=== PATIENT | male | born 1975 | race Caucasian/White ===

== ENCOUNTER 2023-12-22 14:01 | Inpatient (IN) | payer OTHER ==
[2023-12-22] VITALS (12 sets, daily range): BP systolic 92–133; BP diastolic 53–76; PULSE 96–107; TEMP 96.4–98
[~2023-12-22] VITALS: Ht 170.2 cm; Wt 64.5 kg
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
[2023-12-22 14:24] LABS: BASO % 0.1 % (0.0-2.0); EOS % 0.2 % (0.0-4.0); GRAN # 14.1 K/mm3 (1.4-6.5); GRAN % 85.7 % (42.2-75.2); LYMPH # 1.4 K/mm3 (1.2-3.4); LYMPH % 8.6 % (20.0-51.0); MEAN CELL VOLUME 109 fl (80.0-100.0); MEAN CORPUSCULAR HGB CONC 34 g/dl (33.0-37.0); MEAN PLATELET VOLUME 11.5 fl (7.4-10.4); MONO # 0.8 K/mm3 (0.1-0.6); PLATELET COUNT 112 K/mm3 (130-400); RED BLOOD COUNT 1.43 M/mm3 (4.20-5.60); REDCELL DISTRIBUTION WIDTH-CV 17.2 % (11.5-14.5)
[2023-12-22 14:39] LABS: INR 6.4 (0.8-3.0)
[2023-12-22 14:40] LABS: ALBUMIN 1.7 gm/dL (3.5-5.0); BILIRUBIN,TOTAL 6.1 mg/dL (0.2-1.2); CALCIUM 7.8 mg/dL (8.4-10.2); CREATININE, serum 2.34 mg/dL (0.72-1.25); POTASSIUM 3.8 mmol/L (3.5-4.5); TOTAL PROTEIN 7.3 gm/dL (6.2-8.1)
[2023-12-22 14:54] LABS: HEMOGLOBIN 5.3 g/dl (13.5-18.0); MEAN CORPUSCULAR HEMOGLOBIN 37 pg (27-31)
[2023-12-22 14:55] LABS: HEMATOCRIT 15.6 % (42.0-52.0)
[2023-12-22 14:56] LABS: COLLECTION METHOD CLEAN CATCH
[2023-12-22 15:24] LABS: URINE APPEARANCE Cloudy (CLEAR/HAZY); URINE COLOR Amber (YELLOW)
[2023-12-22 15:25] LABS: PH 5.5 (5.0-8.5); URINE BLOOD TRACE-INTACT (NEGATIVE); URINE GLUCOSE Negative (NEGATIVE); URINE KETONE TRACE (NEGATIVE); URINE NITRATE Negative (NEGATIVE); URINE PROTEIN(semi-quant) TRACE (NEGATIVE)
[2023-12-22 15:50] LABS: SQUAMOUS EPITHELIAL 0-2 /hpf (0-10); URINE BACTERIA Many /hpf (NONE SEEN); URINE RBC 0-2 /hpf (0-2)
[2023-12-22] MEDS ORDERED: MULTI VITAMINS1 TAB PO (19:08)
[2023-12-22] MEDS ORDERED: LASIX 20MG TABL20 MG PO (19:08)
[2023-12-22] MEDS ORDERED: ALDACTONE 25MG25 M1 PO (19:09)
--- NOTE | 2023-12-22 19:47 | NUR ---
RECEIVED REPORT VIA PHONE CALL FROM IKE, ED RN AT 1733. PATIENT TRANSFERRED TO ICU ROOM 2 VIA STRETCHER ACCOMPANIED BY ED RN, IKE. PATIENT ARRIVED TO UNIT AT 1800. PATIENT TRANSFERRED INTO ICU BED WITH ASSISTANCE OF 4X NURSES. PATIENT RESPONSIVE TO VERBAL STIMULI BUT UNABLE TO ANSWER QUESTIONS. PATIENT FOLLOWS COMMANDS AFTER ASKED TO DO THE COMMAND SEVERAL TIMES. PATIENT IS LETHARGIC AND FALLS ASLEEP QUICKLY, THEN STARTLES AWAKE TO VERBAL STIMULI. PATIENT HAS BLOOD INFUSING AT 120ML/HR TO RIGHT UPPER ARM IV THAT WAS STARTED IN ER. HEART SOUNDS ARE REGULAR WITH S1 AND S2 NOTED, BUT TACHY IN RATE. LUNG SOUNDS ARE CLEAR BILATERALLY AND DIMINISHED IN THE BASES. PATIENT'S ABDOMEN IS VERY DISTENDED AND FIRM. BOWEL SOUNDS ARE HYPOACTIVE X4. PATIENT HAS A SELF IN PLACE DRAINING STACEY COLORED URINE. PATIENT HAS BRUISING AND SKIN TEARS GENERALIZED ALL OVER HIS BODY. PULSES ARE INTACT BILATERALLY IN UPPER AND LOWER EXTREMITIES. PATIENT'S SKIN COLOR IS JAUNDICED WITH GENERALIZED PETECHIAE ALL OVER BODY. PATIENT'S SISTER, SIMRAN, IS EMERGENCY CONTACT. FAMILY WAS UPDATED ON PATIENT'S CONDITION BY THIS NURSE AND SPOKEN TO BY DR. ZAMBRANO VIA PHONE. QUESTIONS ENCOURAGED AND ANSWERED. PATIENT'S BED IN A LOW POSITION. CALL LIGHT WITHIN REACH
--- NOTE | 2023-12-22 21:20 | NUR ---
PATIENT APPEARS TO BE STABLE AT THIS TIME. NO ACTIVE DISTRESS NOTED. SELF CATHETAR IN PLACE AND DRAINING APPROPRIATELY - STACEY COLORED URINE PRESENT. PATIENT ABLE TO AROUSE TO SPEECH AND FOLLOW SIMPLE COMMANDS FOR SHORT PERIOD OF TIME. UNABLE TO RESPOND TO RN OR ANSWER ORIENTATION QUESTIONS. MANY SKIN TEARS NOTED TO PATIENT'S TRUNK AND EXTREMITIES. ABDOMEN DISTENDED FROM ASCITES. GENERALIZED PETECHIAE NOTED WITH EXTREME DRYNESS AND FLAKY. BLEEDING NOTED FROM MOUTH AND SKIN TEAR/IV SITES. PATIENT REFUSED TO LET ANYONE CLEAN BLOOD FROM MOUTH OR FACE. PATIENT IN OBSERVABLE AREA WITH BED IN LOW POSITION.
[2023-12-23] VITALS (17 sets, daily range): BP systolic 89–150; BP diastolic 45–98; PULSE 94–106; TEMP 96.6–97.7; O2SAT 99–100
[2023-12-23 00:42] LABS: CREATININE, serum 2.16 mg/dL (0.72-1.25); POTASSIUM 3.9 mmol/L (3.5-4.5)
[2023-12-23 03:24] LABS: BASO % 0.1 % (0.0-2.0); EOS % 0.4 % (0.0-4.0); GRAN # 8.7 K/mm3 (1.4-6.5); GRAN % 87.1 % (42.2-75.2); LYMPH # 0.7 K/mm3 (1.2-3.4); LYMPH % 6.9 % (20.0-51.0); MEAN CORPUSCULAR HGB CONC 35 g/dl (33.0-37.0); MEAN PLATELET VOLUME 10.5 fl (7.4-10.4); MONO # 0.5 K/mm3 (0.1-0.6); MONO % 5.1 % (1.7-9.3); RED BLOOD COUNT 2.11 M/mm3 (4.20-5.60); REDCELL DISTRIBUTION WIDTH-CV 17.5 % (11.5-14.5)
[2023-12-23 03:27] LABS: HEMATOCRIT 19.9 % (42.0-52.0); MEAN CELL VOLUME 94 fl (80.0-100.0); MEAN CORPUSCULAR HEMOGLOBIN 33 pg (27-31)
[2023-12-23 03:30] LABS: PLATELET COUNT 47 K/mm3 (130-400)
[2023-12-23 03:33] LABS: INR 5.8 (0.8-3.0)
[2023-12-23 03:38] LABS: ALBUMIN 2.9 gm/dL (3.5-5.0); BILIRUBIN,TOTAL 7.1 mg/dL (0.2-1.2); CREATININE, serum 2.22 mg/dL (0.72-1.25); MAGNESIUM 1.9 mg/dL (1.6-2.6); PHOSPHOROUS 3.5 mg/dL (2.3-4.7); POTASSIUM 3.7 mmol/L (3.5-4.5); TOTAL PROTEIN 6.8 gm/dL (6.2-8.1)
--- NOTE | 2023-12-23 10:02 | NUR ---
dry dip worker was informed by Dr. Hurd that pt will have a palliative consult ordered. MATILDA spoke with sister, Flores [phone] due to patient not being able to answer many questions. She reports patient lives with his parents off and on in [place], but as of late he lived with his parents. She states he does see Dr. Molina and obtains medications from [facility]. She says he can afford his medications, but was worried about other hospital bills. She reports pt is independnet with [employer] and uses no DME. She says there is no DPOA-HC, but her and her Dad, Siddhartha Brown [phone] would make decisions. His mother is Leesa Brown, but she is not very mobile and would not be the sole decision-maker. SW provided from a legal status, RUBIK would be his parents. Flores was agreeable and understood this. She reports she will be on her way here, she is emotional and she reports. Flores began crying and reports, "I am just scared... we had no idea and he didn't tell us how bad it was." SW provided comfort and empathized with her. She reports they would not want him to suffer and reported this twice to MATILDA. MATILDA provided they will have further discussions regarding steps moving forward and goals of care. Flores reports, "He would not want to be in an hospital.." MATILDA provided the ICU Director will discuss and schedule a conversation with them all. Flores verbalized understanding and has no further questions. Palliative Consult pending
--- NOTE | 2023-12-23 10:15 | NUR ---
Patient unable to provide consent for PICC line placement. Called patient's parents (Siddhartha & Leesa) regarding PICC line placement. Explained reason for PICC, risk & benefit. They asked that their daughter, Flores, be called to make the decision. Call made to Flores with explanation of PICC, risk & benefits discussed. Phone consent received.
--- NOTE | 2023-12-23 13:30 | NUR ---
Palliative care meeting at this time. Patient not able to participate related to encephalopathy. Met with patient's father (Siddhartha), sister (Flores) & brother (Giacomo). Patient's mother was not able to attend due to mobility. Explained current prognosis based on provider notes, current treatment & prognosis. Discussed DNR code status related to futility; all agreed that patient would not want or survive resuscitation efforts. Discussed options at this time given prognosis. Discussed comfort care options (hospital, hospice house, fci & home with hospice). Discussed what each option would entail. Flores stated that he would not want to suffer. Family plans to go home to talk with the patient's mother about his prognosis & plan of care.
--- NOTE | 2023-12-23 14:17 | NUR ---
fruit or nut farm worker, SW Student Love, and ICU Director Adri attended a palliative consult with pt's father, Siddhartha, Sister, Flores, and brother, Giacomo. They were informed of the poor prognosis and were advised to discuss goals of care regarding pt moving forward. Flores reports she would not want patient to suffer. The family all asked in depth questions and were answered appropriately. They would not want pt to go to a [facility]. They would like to go home and discuss with mother, Leesa and inform the team of the decision. They informed MATILDA and Director Adri that pt's best friend will be coming in town Thursday, and patient would likely decline by then if he was transitioned to comfort care.
--- NOTE | 2023-12-23 17:55 | NUR ---
Assisted with a bed bath and repositioning. Patient noted to have increased labored respirations with expiratory grunting. Patient has had tachypnea all shift but work of breathing is noted to have increased acutely. VS remain stable at this time. Patient eyes opened with respositioning but does not respond purposefully to staff. Eyes noted to have slow nystagmus with sluggish pupil responses. Hospitalist notified and requested to come to bedside to see patient. Family was also notified and requested to come back to the unit due to likely deterioration in condition in the near future.
[2023-12-23 18:05] LABS: HEMATOCRIT 23.8 % (42.0-52.0); HEMOGLOBIN 8.2 g/dl (13.5-18.0)
--- NOTE | 2023-12-23 18:20 | NUR ---
Family arrived at bedside. Collectively they have come to the conclusion to initiate comfort care. Hospitliast notified and will put in comfort care order set.
--- NOTE | 2023-12-23 22:11 | NUR ---
PATIENT IS SOMNOLENT AND DOES NOT AWAKEN TO STIMULI. GRUNTING AND AIR HUNGER NOTED - PATIENT BEING DOSED APPROPRIATELY. COMFORT CARE ORDERS IN PLACE. PATIENT HAS SLOW NYSTAGMUS WHEN ASSESSING PUPILS. SCLEARL JAUNDICE WELL SIGNIFICANT GENERALIZED JAUNDICE NOTED. PETECHIAE PRESENT TO TRUNK AND EXTREMITIES. DRIED BLOOD IN MOUTH - PATIENT SHAKES HEAD WHEN RN ATTEMPTS TO CLEAN. ABDOMINAL DISTENTION AND ASCITES VISUALISED. PATIENT'S UPPER EXTREMITIES ARE COVERED IN SKIN TEARS WITH DRESSINGS APPLIED TO CONTROL BLEEDING FROM OPEN SORES. SELF CATHETAR DRAINING MINIMAL DRAINAGE. BED IN LOW POSITION AND PATIENT IN OBSERVABLE AREA.
[2023-12-24] VITALS (148 sets, daily range): BP systolic 85; BP diastolic 47; PULSE 84; TEMP 96.6; O2SAT 97–100
--- NOTE | 2023-12-24 10:58 | NUR ---
PATIENT RESTING IN BED. PT IS ON COMFORT CARE ORDERS. SELF AND PICC LINE REMAIN IN PLACE. PATIENT IN DISTRESS.
--- NOTE | 2023-12-24 15:40 | NUR ---
PATIENT CAME FROM ICU. PATIENT IS UNRESPONSIVE, HAS BILATERAL SKIN TEARS AND BRUSING AND MEPLEX DRESSING ON THE SKIN TEARS. PATIENT SKIN IS COOL ON FEET AND HANDS. PATIENT SKIN IS JAUNDICE. PATIENT HAS A SELF INPLACE WITH MINIMAL URINE PER REPORT PATIENT NO LONGER PRODUCING URINE. PATIENT WAS GIVEN PAIN MEDICATION BEFORE COMING UP TO FLOOR. PATIENT FAMILY AT BEDSIDE. FAMILY WASNTS TO BE NOTIFIED OF CHANGES IN PATIENT CONDITION.CONTACT NUMBERS WERE GIVEN TO NIGHT NURSE AND WAS ALSO TOLD OF PATIENT'S FAMILIES WISHES. PATIENT HAS REMAINED UNRESPONSIVE THROUGH THE TIME NURSE WAS IN ROOM.PILLOWS WERE USED TO POSITION PATIENT FOR A MORE COMFORTABLE POSITION.
--- NOTE | 2023-12-24 16:41 | NUR ---
TRANSFERED COMFORT CARE PATIENT TO THE MEDICAL FLOOR. REPORT WAS CALLED AND PHYSICAL HANDOFF WITH RIGO SEGURA. PT FAMILY WAS DIRECTED TO THE NEW ROOM. BELONGINGS WITH PATIENT. PT RESTING WITH EYES CLOSED.
--- NOTE | 2023-12-24 20:24 | NUR ---
Rounding on patient, respirations are somewhat labored-not yet apneic. continue with comfort care vigilance-HR 67
--- NOTE | 2023-12-24 20:51 | NUR ---
Rounded on patient, repiratory status remains same-deep breathing, no apneic episodes noted. HR-normal sounds at 64 bpm. CNPI score- no distress or pain.
--- NOTE | 2023-12-24 21:49 | NUR ---
ROUNDED ON PATIENT, BREATHING REMAINS THE SAME-NO APNEIC EPISODES. CNPI SCORE-NO DISTRESS OR PAIN EVIDENT. SKIN IS COLD WITH NO MOTTLEING NOTED. DEPENDENT DIFFUSE EDEMA PRESENT. APICAL HR 60 BPM.
--- NOTE | 2023-12-24 21:55 | NUR ---
LUIS IS SOMNELENT AND IS EXHIBITING OPEN MOUTH DEEP RESPIRATIONS. NO APNEIC EPISODE NOTED. THERE IS DRIED BLOOD AROUND MOUTH R/T ATTEMPT AT -ROXANNA PLACEMENT IN ICU. SKIN IS JAUNDICE IN FACE BUT PALE OTHERWISE. GENERALIZED DEPENDENT EDEMA NOTED. DIFFUSE ECCHYMOSIS ON BL UPPER EXTREMITIES PRESENT. CNPI SCORE CURRENTLY NO PAIN OR DISTRESS. WILL CONTINUE COMFORT CARE VIGILANCE.
--- NOTE | 2023-12-24 23:02 | NUR ---
ROUNDED ON PATIENT. 3 SECOND APNEIC PERIOD NOTED HR 60. WILL NOTIFY FAMILY OF RESPIRATORY CHANGE. NO DISTRESS OR PAIN NOTED.
--- NOTE | 2023-12-24 23:09 | NUR ---
ROUNDED ON PATIENT. LUIS'S BREATHING WAS NOTED TO HAVE 3-5 SECOND APNEIC EPISODES. HR-60. NOTIFIED FAMILY-EMIILANO NAM- OF STATUS CHANGE. NO SIGNS OF DISTRESS OR PAIN OBSERVED. WILL CONTINUE COMFORT CARE VIGILANCE.
--- NOTE | 2023-12-24 23:45 | NUR ---
ROUNDED ON PATIENT-LUIS NOW EXHIBITING JOSÉ MIGUEL-JENKINS BREATHING WITH LONGER PERIODS OF APNEIA-5-10 SECONDS. SISTER EMILIANO CALLED TO UPDATE; DEMISE SEEMS IMMINENT. CHARGE AND CALL CENTER ANALYST CALLED.
--- NOTE | 2023-12-25 | NUR ---
DRILL SETUP OPERATOR AND THIS NURSE BEDSIDE LUIS SLAVA LAST BREATH, CALL PLACED TO HOSPITALIST TO CONFIRM. HOSPITALIST BEDSIDE [id number], AUSCULTATED HEART SOUNDS FOR FULL MINUTE, CHECKED PUPILS AND PULSES. DECLARED TIME OF .
--- NOTE | 2023-12-25 00:35 | NUR ---
LUIS'S FAMILY ARRIVED BEDSIDE. COMFORT AND SUPPORT OFFERED. PAUSED POST MOTERM CARE TO ALLOW TIME ALONE WITH FAMILY
--- NOTE | 2023-12-25 01:33 | NUR ---
0009 Contacted Shabana at [facility]. Referral number [id number] Per Shabana from [facility]. Brando to release patient to home. [facility]. 0136 home contacted for grain picker.
--- NOTE | 2023-12-25 01:50 | NUR ---
POST MORTEM CARE COMPLETE. PICC LINE PULLED AND MEASURED 14 IN OR 35.5 CM. NO BELONGINGS LEFT BY PATIENT FAMILY. HOME IN ROUTE.
--- NOTE | 2023-12-25 02:38 | NUR ---
PATIENT REMOVED FROM UNIT BY HOME.
== END 2023-12-25 02:38 | disposition expired | DRG 432 ==
LOC: COL.ER 14:01 → ICU 16:20 → EDBEDREQTM 17:02 → MEDICAL 12-24 15:54
PROVIDERS: Family Medicine; ADMIT Internal Medicine
PROC: 30233N1 Transfusion of Nonautologous Red Blood Cells into Peripheral Vein, Percutaneous Approach (ICD-10-PCS; 2023-12-22)
PROC: 02HV33Z Insertion of Infusion Device into Superior Vena Cava, Percutaneous Approach (ICD-10-PCS; principal; 2023-12-25)
DX: K70.31 Alcoholic cirrhosis of liver with ascites (principal); E43 Unspecified severe protein-calorie malnutrition; N17.9 Acute kidney failure, unspecified; E87.20 Acidosis, unspecified; K76.6 Portal hypertension; D68.9 Coagulation defect, unspecified; J90 Pleural effusion, not elsewhere classified; K76.82 Hepatic encephalopathy; Z51.5 Encounter for palliative care; Z66 Do not resuscitate; E88.09 Other disorders of plasma-protein metabolism, not elsewhere classified; M62.84 Sarcopenia; T45.515A Adverse effect of anticoagulants, initial encounter; W18.39XA Other fall on same level, initial encounter; K72.10 Chronic hepatic failure without coma; D53.9 Nutritional anemia, unspecified; D69.6 Thrombocytopenia, unspecified; Z88.1 Allergy status to other antibiotic agents; Z87.442 Personal history of urinary calculi; Y93.89 Activity, other specified; Y92.89 Other specified places as the place of occurrence of the external cause; Z68.21 Body mass index [BMI] 21.0-21.9, adult
CPT/HCPCS: A4314; C1751; C9113; J2060; J2270; J2354; J2405; J2543; J3430; J7030; J7040; J7120; P9016; P9047